=== PATIENT | female | born 1955 | race African-American/Black ===

== ENCOUNTER 2019-05-04 18:15 | Emergency (ER) | payer OTHER ==
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
[2019-05-04 20:37] VITALS: TEMP 97.8
[2019-05-04 20:39] VITALS: BP 130/59; O2SAT 99
== END 2019-05-04 19:57 | disposition home or self-care (01) ==
LOC: ER 18:15
DX: S01.511A Laceration without foreign body of lip, initial encounter (principal); W17.89XA Other fall from one level to another, initial encounter; Y93.55 Activity, bike riding; Y92.9 Unspecified place or not applicable; Y99.9 Unspecified external cause status
CPT/HCPCS: 70450; 70486; 76377; 99283

== ENCOUNTER 2020-09-18 14:55 | Emergency (ER) | payer OTHER ==
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
--- NOTE | 2020-09-18 17:48 | RAD REPORT ---
EXAM DESCRIPTION: Sebastien Pa And Lat (2 Views)09/18/2020 5:28 pm CLINICAL HISTORY: Cough COMPARISON: None FINDINGS: Few areas of subsegmental atelectasis within the lung bases Upper lobes appear clear. Heart is borderline enlarged
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
[2020-09-18 19:00] VITALS: BP 110/61; TEMP 97.5; O2SAT 97
== END 2020-09-18 18:42 | disposition home or self-care (01) ==
LOC: ER 14:55
DX: S00.90XA Unspecified superficial injury of unspecified part of head, initial encounter (principal); S20.219A Contusion of unspecified front wall of thorax, initial encounter; V49.59XA Passenger injured in collision with other motor vehicles in traffic accident, initial encounter; I10 Essential (primary) hypertension
CPT/HCPCS: 70450; 71046; 72125; 99283

== ENCOUNTER 2024-01-20 07:19 | Observation (INO) | payer OTHER ==
[2024-01-16 10:14] LABS: Absolute Basophils 0.1 K/uL (0-0.5); Absolute Eosinophils 0.1 K/uL (0-0.5); Absolute Lymphocytes (CBC) 2.9 K/uL (0.7-4.9); Absolute Monocytes 0.8 K/uL (0.1-1.3); Absolute Neutrophil 6.2 K/uL (1.8-8.0); Basophils % 0.9 % (0-1.3); Eosinophils % 1.2 % (0-4.4); Hematocrit 43.3 % (36.0-45.0); Hemoglobin 14.3 g/dL (12.0-15.0); Lymphocytes % 28.8 % (15.3-44.8); MCHC 32.9 g/dL (32.0-36.0); MPV 8.6 fL (7.6-11.3); Neutrophils % 61.1 % (41.7-73.7); Nucleated Red Blood Cells % 0.1 % (0-0); Platelets 299 thou/uL (152-406); Red Cell Distribution Width 14.8 % (12.1-15.2)
[2024-01-16 10:14] LABS: Specific Gravity 1.014 (1.005-1.030); Urine Bilirubin NEGATIVE (Negative); Urine Blood Negative (Negative); Urine Clarity Clear (Clear); Urine Color Light-Yellow (Yellow); Urine Glucose NEGATIVE (Negative); Urine Ketones NEGATIVE (Negative); Urine Microscopic Reflex YN NO UMIC; Urine Nitrite NEGATIVE (Negative); Urine Protein NEGATIVE (Negative); Urine Urobilinogen Normal (Normal); Urine pH 5.5 (5.0-7.0)
[2024-01-16 10:19] LABS: PT Prothrombin Time 11.5 SECONDS (9.4-12.5); PTT, Activated Partial Thromb 31.9 SECONDS (24.3-36.9); Protime INR 1.05
[2024-01-16 10:26] LABS: Albumin 3.7 g/dL (3.4-5.0); Albumin/Globulin Ratio 0.9 (1.1-1.8); Anion Gap 6.4 mEq/L (5.0-15.0); Bilirubin Total 0.4 mg/dL (0.2-1.0); Globulin 4.1 g/dL (2.3-3.5); Potassium 4.4 mEq/L (3.5-5.1); Protein, Total 7.8 g/dL (6.4-8.2)
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
--- NOTE | 2024-01-19 13:11 | EKG ---
Test Date: 2024-01-16 Test Time: 09:42:02 Supervisor Brake Repair: MEASUREMENT RESULTS: Intervals: Rate: 53 FL: 168 QRSD: 88 QT: 436 QTc: 409 [place]: P: 12 FL: 168 QRS: 44 T: 31 INTERPRETIVE STATEMENTS: Sinus bradycardia Cannot rule out Anterior infarct, age undetermined Abnormal ECG No previous ECG available for comparison Electronically Signed On 01-19-24 13:04:13 CDT by Oswaldo Bills
[2024-01-20] MEDS: dexAMETHasone 10 MG/ML VIAL ONE (07:31)
[2024-01-20] MEDS: LIDOCAINE 1% MPF 5 ML VIAL ONE (07:31)
[2024-01-20] MEDS: MIDAZOLAM HCL 2 MG/2 ML INJ ONE (07:32)
[2024-01-20] MEDS: FENTANYL CITR 100 MCG/2 ML ONE (07:32)
[2024-01-20] MEDS: DEXMEDETOMIDINE HCL 200 MCG/2 ML VIAL ONE (07:32)
[2024-01-20] MEDS: EPINEPHRINE 1 MG/ML VIAL ONE (07:32)
[2024-01-20] MEDS: MAGNESIUM SULFATE 1 gm IVPB 1 GM/100 ML BAG IV ONE (07:33)
[2024-01-20] MEDS: BUPIVACAINE 0.25% PF 30 ML VIAL ONE (07:33)
[2024-01-20] MEDS: Ringers Lactate 1,000 ML IV ONE (07:55)
[2024-01-20] MEDS: Oxycodone HCl/Acetaminophen 5/325 MG TAB ONE (08:04)
[2024-01-20] MEDS: GABAPENTIN 100 MG CAP ONE (08:05)
[2024-01-20] MEDS: ACETAMINOPHEN 500 MG TAB ONE (08:05)
[2024-01-20] MEDS: CELECOXIB 100 MG CAPSULE ONE (08:05)
[2024-01-20] MEDS ORDERED: dexAMETHasone 10 MG/ML VIAL ONE (09:05)
[2024-01-20] MEDS ORDERED: KETOROLAC 30 MG/ML INJ ONE (09:05)
[2024-01-20] MEDS ORDERED: KETAMINE HCL IN 0.9 % NACL 50 MG/5 ML SYRINGE IV ONE (09:05)
[2024-01-20] MEDS ORDERED: propofoL 200 MG/20 ML VIAL IV ONE (09:05)
[2024-01-20] MEDS ORDERED: LIDOCAINE 2% MPF 5 ML VIAL ONE (09:05)
[2024-01-20] MEDS ORDERED: NS 0.9% VIAL 10 ML ONE ×2 (09:16)
[2024-01-20] MEDS: CEFAZOLIN SODIUM 2 GM/VIAL ONE (09:21)
[2024-01-20] MEDS: TRANEXAMIC ACID 1,000 MG/10 ML VIAL IV ONE (09:24)
[2024-01-20] MEDS ORDERED: LABETALOL 20 MG/4ML SYRINGE IV ONE (11:30)
[2024-01-20] MEDS ORDERED: ONDANSETRON 4 MG/2 ML VIAL IV PRN (11:34)
[2024-01-20] MEDS ORDERED: DOCUSATE NA 100 MG CAP PO PRN (11:34)
--- NOTE | 2024-01-20 11:34 | P.BOP ---
Preoperative diagnosis: left knee arthritis Postoperative diagnosis: same Primary procedure: left total knee arthoplasty Estimated blood loss: 100ccs Anesthesia: General Complications: None Transferred to: Recovery Room Condition: Good
--- OUTSIDE RECORDS SUMMARY | 2024-01-20 12:37 | XMS REPORT | Continuity of Care Document ---
Author Name Unknown Address [address] [facility] [address] [place] [address] [facility] thconnect Address [address] [facility] [address] [place] [address] Care Team Providers Care Nurse Liaison Name Role Phone PENNY MARTINEZ Primary Care Physician UnavailPRISCILA Vigil Attending Clinician PRISCILA Goodman Attending Clinician Unavailnain etienne Radiology Attending Clinician Unavailable RADIOLOGY Attending Clinician Unavailable Doctor Unassigned, [place] Attending Clinician U IVAN Hylton Attending Clinician Unavailable NANCY KAYE Admitting Clinician Unavailnain etienne Payers Payer Name Policy Type Policy Number Effective Date Expirati on Date Source Problems Condition Name Condition Details Condition Category Status Onset Date Resolution Date Last Treatment Date Treating Clinician Comments Source Obesity (BMI 30-39.9) Obesity (BMI 30-39.9) Disease Active 01-27 00:00: 00 [facility] Total knee replacemen t status Total knee replacemen t status Disease Active 01-27 00:00: 00 [facility] Allergies, Adverse Reactions, Alerts Allergy Name Allergy Type Status Severity Reaction(s) Onset Date Inactive Date Treating Clinician Comments Source NO KNOWN ALLERGIE S Drug Class Active [facility] Social History Social Habit Start Date Stop Date Quantity Comments Source Sexual orientation [facility] Alcohol intake 2017-03-27 00:00:00 2017-03-27 00:00:00 0 /d [facility] Tobacco use and exposure 2017-01-24 00:00:00 2017-01-24 00:00:00 Smokeless tobacco non-user [facility] History of Social function 2017-01-24 00:00:00 2017-01-24 00:00:00 [facility] Sex Ass[birth year] At 1955 00:00:00 1955 00:00:00 [facility] Smoking Status Start Date Stop Date Source Never smoked tobacco [facility] Medications Ordered Medication Name Filled Medication Name Start Date Stop Date Current Medication? Ordering Clinician Indication Dosage Frequency Signature (SIG) Comments Components Source acetaminoph en-codeine (TYLENOL-CO DEINE #3) 300-30 mg tablet 01-29 00:00: 00 Yes 1{tbl} Take 1 tablet by mouth every 4 (four) hours as needed for Pain (scale 4-6) or Pain (scale 7-10). [facility] lisinopril 10 mg tablet 09-26 00:00: 00 Yes 10mg Take 10 mg by mouth daily. [facility] hydroCHLORO thiazide 12.5 mg tablet 09-26 00:00: 00 Yes 12.5mg Take 12.5 mg by mouth daily. [facility] amLODIPine 10 mg tablet 09-26 00:00: 00 Yes 10mg Take 10 mg by mouth daily. [facility] Procedures Procedure Date / Time Performed Performing Clinicia n Source MR KNEE LEFT WO CONTRAST 2023-07-09 15:45:00 Requisition, Paper [facility] ASSIGNMENT OF BENEFITS 2023-07-09 14:50:03 Docto r Unassigned, [place] [facility] Encounters Start Date/Time End Date/Time Encounter Type Admission Type Attending Clinicians Care Facility Care Department Encounter ID Source 2023-07-09 08:51:11 2023-07-09 23:59:00 Hospital Encounter Radiology [facility] [id number] [facility] 2023-07-09 08:51:11 2023-07-09 23:59:00 Outpatient R RADIOLOGY [facility] [id number] [facility] 2023-07-09 00:00:00 2023-07-09 00:00:00 Orders Only Doctor Unassigned, [place] [facility] [id number] [facility] 2022-10-17 16:00:00 2022-10-17 16:00:00 Outpatient IVAN EKY [facility] [id number] [facility]
[2024-01-20 15:01] VITALS: BMI 41.1
--- NOTE | 2024-01-20 16:22 | OP ---
Date of Procedure: 01/20/2024 Surgeon: Erwin Bragg MD Preoperative Diagnosis: Severe left knee arthritis, unresolved with conservative management. Postoperative Diagnosis: Severe left knee arthritis, unresolved with conservative management. Procedure: Left total knee arthroplasty using the V[employer] system from [employer]. Estimated Blood Loss: 100 cc. Complication: There were no complications. Indications For Operation: Ms. Pereira is a 69-year-old female who is 5 feet 2 inches, weighing 225 pounds with a BMI of 41.2. Attempts to alleviate her severe pain from osteoarthritis of the knee to ve been unsuccessful and risks, benefits, and alternatives of total knee arthroplasty had been discus sed with her. She has had a contralateral total knee arthroplasty and appears to be doing well with that. She was made aware of the increased risk from BMI and agrees to proceed. Description Of Procedure: Patient was taken to the operating room, placed in supine position. Gener al anesthesia was easily obtained by the Anesthesia staff. They previously obtained a block in the [place] [facility] area. Following this, a well-padded tourniquet was placed on superior left thigh. Left lower extremity was then prepped and draped in the usual sterile fashion for the procedure. After this, t he leg was then elevated and exsanguinated with [place] wrap and flexed and the tourniquet was raised. A standard incision was taken down carefully through skin and soft tissues. Meticulous hemostasis valerie ng maintained using Bovie electrocautery. This led down to the tibial tubercle, which was somewhat m oderately displaced in relation to the tibial plateau. The patella itself was somewhat small, howeve r, easily identified and the appropriate level is identified and then exploited for better exposure. Following this, the superior medial portion of the patella was marked and a standard medial parapate llar arthrotomy was then performed with liberation of approximately 60 cc of rather normal-appearing synovial fluid. This was followed by eversion of the patella and removal of medial and lateral menis ci as well as the ACL as well as a significant amount of fat pad leading to better visualization. Fo llowing this, the knee was inspected. It was found to have definite [id number] changes of the medi al compartment as well as some diffuse changes of the other 2 compartments. Following this, a [facility] intramedullary alignment guide was placed and distal femoral cut was made. It was then sized to a size 60. After this, attention was turned to the tibia. The tibia was then cut. There was found t o be a fairly large medial osteophyte which was removed. It was then trialed with appropriate size t ibia, size 10 poly, and a trial femur. It was brought through range of motion and it was found to be balanced in both flexion and extension. It may be a little tight in flexion. At any rate, however, this was difficult to assess because of habitus. The patella was calipered and cut. It appears to glide normally when the tibial tray is aligned more with the laterally placed tibial tubercle. The t ibial cutting block was then reapplied to ensure we were not cutting too little slope and it appears that if we were to cut more slope, it would be excessive. Therefore, decision was made to retain the same amount of slope. After this, the box was cut for the femur. This was followed by punching of the tibia, again punched a little more externally than we would normally place because of the positio n of the tibial tubercle, not wanting to internally rotate the tibial component in relation to the tu bercle. The surfaces were then prepped for cementation and all components with the exception of the tibial polyethylene were then cemented into place. This allowed for the cement to harden. Any unsup ported cement was removed. The knee was then brought through a range of motion. It was felt that a size 12 tibial polyethylene would give the best fit. Any nonsupportive cement was again removed. It was copiously irrigated and the final polyethylene was then placed, locked with the locking bar. It was again irrigated and the extensor mechanism was repaired using heavy Ethibond sutures. It was ag ain irrigated. The skin was closed using 2-0 Vicryl sutures followed by edgar. The patient was th en placed in a very well-padded sterile dressing, awakened, and taken to the recovery room in good condition. There were no complications. SE/MODL Voice ID: [id number] Report ID: [id number]
[2024-01-20] MEDS: CEFAZOLIN 1 GM in NA CHLORIDE 0.9% 50 ML IVPB SCH (17:57)
[2024-01-21 03:57] LABS: Hematocrit 40.5 % (36.0-45.0); Hemoglobin 13.3 g/dL (12.0-15.0)
[2024-01-21] MEDS: ENOXAPARIN 30 MG/0.3 ML SQ SCH (06:54)
[2024-01-21] MEDS: HYDROCODONE/APAP 7.5/325 MG TAB PO PRN (06:58)
[2024-01-21 13:19] VITALS: BP 141/61; TEMP 97.5
[2024-01-21 14:17] VITALS: O2SAT 98
--- NOTE | 2024-01-21 17:16 | P.CNS ---
Allergies No Known Allergies Allergy (Verified 01/20/24 08:39) Home Medications: Amlodipine [Norvasc*] 10 mg PO DAILY 01/16/24 Cholecalciferol (Vitamin D3) [Vitamin D3] 1 cap PO DAILY 01/16/24 Cyanocobalamin (Vitamin B-12) [Vitamin B12] 1 tab PO DAILY 01/16/24 Pyridoxine HCl (Vitamin B6) [Vitamin B6] 1 tab PO DAILY 01/16/24 - Past Medical/Surgical History -: RTK replacement 2016 -: LTK 01/20/24 -: five vaginal births - Social History Alcohol use: No CD- Drugs: No Caffeine use: Yes Place of Residence: Home Physical Examination Temp Pulse Resp BP Pulse Ox 97.5 F 59 17 141/61 H 94 01/21/24 12:00 01/21/24 12:00 01/21/24 12:00 01/21/24 12:00 01/21/24 12:00 Laboratory Data (last 24 hrs) 01/21/24 03:39 Hgb 13.3 Hct 40.5
== END 2024-01-21 15:35 | disposition home health service (06) ==
LOC: OR 07:19 → 2ND 12:21
PROVIDERS: ADMIT Orthopaedic Surgery; ATTEND Orthopaedic Surgery
PROC: 0SRD069 Replacement of Left Knee Joint with Oxidized Zirconium on Polyethylene Synthetic Substitute, Cemented, Open Approach (ICD-10-PCS; principal; 2024-01-20 09:45)
DX: M17.12 Unilateral primary osteoarthritis, left knee (principal); Z68.41 Body mass index [BMI] 40.0-44.9, adult
CPT/HCPCS: 93005; 85025; 36415 ×2; 85610; 88305; 88311; 85730; 85018; 85014; 81003; 80053; 71046; 97110; 97116 ×2; 97139; 97161; 97530; 94010; 27447; J3475; A4216 ×2; J2704; J2001 ×2; J1650; J2250; J3010; J1100 ×2; J0171; J2405; J7120; J0690 ×3; C1776; 88304; G0378; G0379